=== PATIENT | female | born 1960 | race Caucasian/White ===

== ENCOUNTER 2018-02-23 20:10 | Inpatient (IN) | payer OTHER ==
[~2018-02-23] VITALS: Ht 157.5 cm; Wt 99.3 kg
--- NOTE | ~2018-02-23 | 2DMMODE ---
[facility] [place] [place] [address] 2 D/M-MODE ECHOCARDIOGRAM Name: BRITTANI HADLEY Room #: 426-P ADM IN M.R.#: [id number] Admission: 02/23/18 Attend Phys: María Fox Discharge: Date of : 62 Date of Service: 02/24/18 1449 Report #: [id number] THIS REPORT FOR: //name// APPROVED REPORT Study performed: 02/24/2018 12:10:32 EXAM: Comprehensive 2D, Doppler, and color-flow Echocardiogram Patient Location: Echo lab Room #: 426 Status: routine BSA: 1.99 HR: 67 bpm BP: 156/89 mmHg Rhythm: NSR Other Information Study Quality: Poor Indications Congestive Heart Failure Weakness/fatigue. Hx. of CABG, stents, diabetes, HTN, chest pain, SOA. 2D Dimensions RVDd: 24.81 mm IVSd: 12.21 (7-11mm) LVOT Diam: 20.22 (18-24mm) LVDd: 47.79 mm PWd: 12.81 (7-11mm) LVDs: 34.83 (25-40mm) Aortic Root: 28.59 mm IVC: 20.00 mm Volumes Left Atrial Volume (Systole) Single Plane 4CH: 31.77 mL Single Plane 2CH: 38.62 mL LA ESV Index: 22.20 mL/m2 Aortic Valve AoV Peak Armaan.: 3.19 m/s AO Peak Gr.: 43.08 mmHg LVOT Max P.76 mmHg AO Mean Gr.: 21.73 mmHg AO V2 Mean: 2.23 m/s LVOT Max V: 1.39 m/s AO V2 VTI: 77.25 cm DAVID Vmax: 1.40 cm2 [facility] [place] [address] 2 D/M-MODE ECHOCARDIOGRAM Name: BRITTANI HADLEY Room #: 426[facility] IN M.R.#: [id number] Admission: 02/23/18 Attend Phys: María Fox Discharge: Date of : 62 Date of Service: 02/24/18 1449 Report #: [id number] Mitral Valve E/A Ratio: 1.3 MV Decel. Time: 224.12 ms MV E Max Armaan.: 1.13 m/s MV A Armaan.: 0.85 m/s MV PHT: 64.99 ms IVRT: 93.43 ms Pulmonary Vein P Vein S: 0.44 m/s P Vein A: 0.26 m/s P Vein D: 0.61 m/s P Vein A Dur.: 162.6 msec P Vein S/D Ratio: 0.72 Tricuspid Valve TR Peak Armaan.: 2.45 m/s RAP Estimate: 5.00 mmHg TR Peak Gr.: 23.93 mmHg PA Pressure: 29.00 mmHg Left Ventricle The left ventricle is normal size. Mild concentric left ventricular hypertrophy. The left ventricular systolic function is normal. The left ventricular ejection fraction is within the normal range. LVEF is 55%. Moderate diastolic dysfunction is present (pseudonormal filling). Right Ventricle The right ventricle is normal size. The right ventricular systolic function is normal. Atria Left atrium is mildly dilated. The right atrium size is normal. Aortic Valve The aortic valve is not well visualized. Aortic valve is appears trileaflet. No aortic regurgitation seen. There is mild valvular aortic stenosis. Calculated aortic valve area is 1.5 cm2 with maximum pressure gradient of 41 mmHg and mean pressure gradient of 22 mmHg. Mitral Valve The mitral valve is normal in structure. Mild mitral annular calcification. Trace mitral regurgitation. No evidence of mitral valve stenosis. Tricuspid Valve [facility] [address] [place] [address] 2 D/M-MODE ECHOCARDIOGRAM Name: BRITTANI HADLEY Room #: 426-P ADM IN ..#: [id number] Admission: 02/23/18 Attend Phys: María Fox Discharge: Date of : 62 Date of Service: 02/24/18 1449 Report #: [id number] The tricuspid valve is normal in structure. Trace tricuspid regurgitation. Estimated PAP of 29 mmHg. Pulmonic Valve Pulmonic valve is not well visualized. Great Vessels Aortic root is normal in size. IVC is normal in size and collapses >50% with inspiration. Pericardium There is no pericardial effusion. <Conclusion> The left ventricle is normal size. LVEF is 55%. Left atrium is mildly dilated. The aortic valve is not well visualized. Aortic valve is appears trileaflet. There is mild valvular aortic stenosis. Calculated aortic valve area is 1.5 cm2 with maximum pressure gradient of 41 mmHg and mean pressure gradient of 22 mmHg. The mitral valve is normal in structure. Mild mitral annular calcification. Trace mitral regurgitation. The tricuspid valve is normal in structure. Trace tricuspid regurgitation. Estimated PAP of 29 mmHg. Pulmonic valve is not well visualized. There is no pericardial effusion. <ELECTRONICALLY SIGNED> By: Jose Foster MD 02/24/18 1449 1449 144 Jose Foster MD /INF
--- NOTE | ~2018-02-23 | EKG ---
[address] [address] ELECTROCARDIOGRAM REPORT Name: BRITTANI HADLEY Room #: 426-P ADM IN M.R.#: [id number] Admission: 02/23/18 Attend Phys: María Pryor Discharge: Date of : 62 Report #: [id number] THIS REPORT FOR: //name// [facility] ED Test Date: 2018-02-23 Test Time: 20:49:54 Pat Name: BRITTANI HADLEY Department: Room: 426 Gender: F [employer] Service [employer]: norberto : 1960 Requested By: Marilyn Celaya Order Number: [id number] MD: Robert Correia Measurements Intervals [place] Rate: 70 P: 30 NH: 178 QRS: 14 QRSD: 119 T: 51 QT: 425 QTc: 459 Interpretive Statements Sinus rhythm Nonspecific intraventricular conduction delay Compared to ECG 11/17/2015 07:24:25 Intraventricular conduction delay now present Electronically Signed On 02-24-2018 9:05:09 CDT by Robert Correia [email or web address] <ELECTRONICALLY SIGNED> By: [place] [id number] 48 Robert Correia MD /NORMAN
--- NOTE | ~2018-02-23 | HC ---
[facility] [place] [address] CONSULTATION Name: BRITTANI HADLEY Room #: 426-P ADM IN M.R.#: [id number] Admission: 02/23/18 Attend Phys: María Pryor Discharge: Date of : 62 Report #: [id number] THIS REPORT FOR: //name// CC: María Guzman DATE OF SERVICE: 02/24/2018 NEPHROLOGY CONSULTATION REASON FOR CONSULTATION: Renal transplant. HISTORY OF PRESENT ILLNESS: The patient is well known to our service. This is a 57-year-old patient who underwent a renal transplantation procedure for diabetic nephropathy and end-stage renal disease 10 years ago. Eight years ago, she had coronary bypass surgery complicated by MRSA infection of the sternum and prolonged hospitalization at [facility], but she eventually did well. Creatinine was at baseline between 1 and 1.5. Recently, she has had elevating creatinine 2 weeks ago in the office. She was seen by Dr. Fairbanks and her creatinine was 2.9. She had volume overload and her torsemide, which was 10 mg once a day, I believe, was increased to 20 mg twice daily. Her swelling improved. She has also had anemia and was given intravenous iron as an outpatient as well as begun on erythropoietin. Her hemoglobin has responded nicely. The patient has become very sluggish and tired and weak over the last several days with cold intolerance, came to the Emergency Room with these complaints and was admitted. 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 She has got peripheral neuropathy. She has peripheral arterial disease, has had peripheral bypass surgery on both legs. 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 OUTPATIENT MEDICATIONS: As listed include tacrolimus 0.5 mg b.i.d., Myfortic 360 mg b.i.d., allopurinol 300 mg daily, Xanax 0.25 mg p.r.n., aspirin 81 mg daily, calcium carbonate 500 mg daily, calcium carbonate with vitamin D3 at 600 units daily, carvedilol 12.5 mg b.i.d., Plavix 75 mg daily, glipizide 5 mg daily, hydrocodone, magnesium b.i.d., mycophenolate 360 mg b.i.d., Actos 30 mg daily, simvastatin 20 mg daily, Ambien 5 mg at bedtime. SOCIAL HISTORY: No cigarettes or alcohol. She is disabled. [address] [address] CONSULTATION Name: BRITTANI HADLEY Room #: 426-P [facility] IN M.R.#: [id number] Admission: 02/23/18 Attend Phys: María Pryor Discharge: Date of : 62 Report #: [id number] FAMILY HISTORY: Strongly positive for diabetes and renal disease. PHYSICAL EXAMINATION: GENERAL: This is a reasonably well-appearing, pleasant patient, in no acute distress. SKIN: Unremarkable. SKELETAL: Shows her to be somewhat overweight, well-developed, well-nourished. HEENT: Extraocular movements are full in the right eye. No vision in the left eye. The mucous membranes are slightly dry. NECK: The neck veins are flat. CHEST: Clear to auscultation. HEART: Regular. ABDOMEN: Soft and nontender without bruits, masses or organomegaly, and the transplanted kidney is not tender. EXTREMITIES: Show no peripheral edema. The pulses are somewhat diminished. LABORATORY DATA: The sodium is 138, potassium is 3.9, chloride 103, bicarbonate 31, BUN 103, creatinine 2.9. Of note, calcium was 10.1 with no albumin listed, I believe, magnesium 3.1. ASSESSMENT AND PLAN: 1. Tired and sluggish. I suspect she has mild hypercalcemia and hypermagnesemia. We will need to cut back on her supplementations of both of them as well as her vitamin D3, which may be leading to some of these symptoms. For completeness, I will check TSH and I will check echocardiogram. She is being given some IV fluids. I will modulate the rate there. Her diuretics are being withheld and that seems to be appropriate as well. I suspect she will be feeling better if we can get some of these abnormalities corrected. 2. History of coronary bypass. 3. Diabetes with triopathy. 4. Renal transplant. Creatinine is up a little bit. Hopefully, that will come down. 5. Anemia. We will continue on erythropoietin as required. 6. History of infected sternum post coronary bypass. <ELECTRONICALLY SIGNED> By: Enrique Moran MD 02/25/18 0636 1150 0049 Enrique Moran MD /nt
[~2018-02-23 20:10] MED LIST: ACCUNEB SO1.25 MG/1; ALLOPURINOL 10100 M1 PO; ALLOPURINOL 30300 M2 PO; AMBIEN 5 MG TABL5 M1 PO; BRILINTA90 MG PO; CALCIUM 600 +1 EAC1 PO; CARVEDILOL12.5 MG PO; COLACE100 MG PO; COLCRYS0.6 MG PO; COREG3.125 MG PO; CYCLOBENZAPRINE5 MG PO; DEMADEX20 MG PO; FLUOXETINE HCL20 M1 PO; GABAPENTIN100 MG PO; HYDROCODONE-AP1 EAC6 PO; HYDROCODONE-APA1 TA1 PO; LANTUS SQ; LANTUS SUBQ; LASIX 40 MG TAB40 M2 PO; LOW DOSE ASPIRI81 M1 PO; MIRALAX17 GM PO; MYFORTIC180 MG PO; NITROGLYCERIN0.4 MG SUBLING; NORCO 10-325 T1 EACH PO; NOVOLOG100 UNIT/1 SQ; NOVOLOG100 UNIT/1 SUBQ; PAIN RELIEVER325 MG PO; PLAVIX 75 MG TA75 M1 PO; PREDNISONE 10 M10 MG PO; PREDNISONE 20 M20 MG PO; PROGRAF0.5 MG PO; PROGRAF1 MG PO; PROZAC20 MG PO; SIMVASTATIN40 MG PO; VITAMIN E400 UNIT PO; XANAX 0.25 MG0.25 MG PO; ZOCOR20 MG PO; ZOCOR40 MG PO
[2018-02-23 20:14] VITALS: BP 121/40
[2018-02-23] MEDS ORDERED: ACTOS15 MG (20:29)
[2018-02-23] MEDS ORDERED: GLUCOTROL5 MG (20:30)
[2018-02-23 20:55] LABS: BE(vivo) 5.7 mmol/L (-2 to +3); HCO3 31.2 mmol/L (22.0-26.0); PCO2 VENOUS 49.4 mmHg (41.0-51.0); PO2 VENOUS 39.2 mmHg (35.0-45.0)
[2018-02-23 21:07] LABS: ABSOLUTE NEUTROPHILS 1.7 thou/uL (1.4-8.2); BASOPHILS 1.6 % (0.0-2.0); EOSINOPHILS 2.4 % (0.0-3.0); HEMATOCRIT 33.4 % (37.0-47.0); HEMOGLOBIN 10.9 gm/dL (12.0-15.0); LYMPHOCYTES 36.2 % (24.0-44.0); MCH 28.6 pg (26.0-34.0); MCHC 32.6 g/dL (28.0-37.0); MCV 87.5 fL (80.0-100.0); MONOCYTES 11.9 % (1.0-8.0); PLATELET COUNT 159 thou/uL (150-400); POLYS 47.9 % (36.0-66.0); RBC 3.82 mil/uL (4.20-5.00); WBC 3.5 thou/uL (4.0-11.0)
[2018-02-23 21:20] LABS: CALCIUM 10.5 mg/dL (8.5-10.1); CREATININE 3.3 mg/dL (0.6-1.0); POTASSIUM 4.1 mmol/L (3.5-5.1)
[2018-02-23 21:45] LABS: URINE BILIRUBIN NEGATIVE (Negative); URINE BLOOD NEGATIVE (Negative); URINE CLARITY CLEAR; URINE COLOR YELLOW; URINE GLUCOSE-RANDOM* NEGATIVE (Negative); URINE KETONES NEGATIVE (Negative); URINE LEUKOCYTES 1+ (Negative); URINE NITRITE NEGATIVE (Negative); URINE PROTEIN (DIPSTICK) NEGATIVE (Negative); URINE SPECIFIC GRAVITY 1.015 (1.005-1.035); URINE UROBILINOGEN 0.2 E.U./dl (0.2-1.0)
[2018-02-23 21:55] LABS: BACTERIA 1-9 Few /HPF (None Seen); CASTS None Seen /LPF (None Seen); CRYSTALS None Seen /LPF (None Seen); SQUAMOUS 0-3 Few /LPF (0-3); URINE WBC 0-5 Rare /HPF (0-5)
[2018-02-23 21:56] LABS: URINE RBC None Seen /HPF (0-2)
[2018-02-23] MEDS ORDERED: MAGNESIUM250 M1 PO (22:07)
[2018-02-23] MEDS ORDERED: BIOTIN1 M1 PO (22:14)
[2018-02-24] MEDS ORDERED: GRAPE SEED50 M1 PO (01:14)
[2018-02-24] MEDS ORDERED: SWEET OIL30 ML PO (01:14)
[2018-02-24] MEDS ORDERED: GREEN TEA1 EACH PO (01:15)
[2018-02-24] MEDS ORDERED: CENTRUM SILVER1 EAC2 PO (01:15)
[2018-02-24] MEDS ORDERED: TUMS PO (01:15)
[2018-02-24] MEDS ORDERED: VITAMIN D31000 UNIT PO (01:16)
[2018-02-24] MEDS ORDERED: CINNAMON500 MG PO (01:17)
[2018-02-24 05:23] VITALS: BP 137/39
[2018-02-24 06:48] VITALS: BP 138/45
[2018-02-24 07:48] VITALS: BP 156/39
[2018-02-24 08:34] LABS: CALCIUM 10.1 mg/dL (8.5-10.1); CREATININE 2.9 mg/dL (0.6-1.0); MAGNESIUM 3.1 mg/dL (1.8-2.4); PHOSPHORUS 4.1 mg/dL (2.5-4.9); POTASSIUM 3.9 mmol/L (3.5-5.1)
[2018-02-24 11:21] VITALS: BP 156/89
[2018-02-24 20:00] VITALS: BP 125/40
[2018-02-25 04:30] VITALS: BP 118/49
[2018-02-25 07:48] VITALS: BP 124/57
[2018-02-25 08:12] LABS: ALBUMIN 2.9 g/dL (3.4-5.0); CALCIUM 8.7 mg/dL (8.5-10.1); CREATININE 2.1 mg/dL (0.6-1.0); MAGNESIUM 2.5 mg/dL (1.8-2.4); PHOSPHORUS 2.8 mg/dL (2.5-4.9); POTASSIUM 3.4 mmol/L (3.5-5.1)
[2018-02-25] MEDS ORDERED: CALCIUM 600 +1 EAC1 PO (09:11)
[2018-02-25] MEDS ORDERED: DEMADEX20 MG PO (09:11)
[2018-02-25] MEDS ORDERED: VITAMIN D31000 UNIT PO (09:11)
[2018-02-25 12:16] VITALS: BP 124/57
== END 2018-02-25 13:40 | disposition home or self-care (01) | DRG 682 ==
LOC: ER 20:10 → EROBS 22:23 → 4E 22:23
PROVIDERS: Hospitalist; Nurse Practitioner Acute Care; Physician Assistant
DX: N17.9 Acute kidney failure, unspecified (principal); E43 Unspecified severe protein-calorie malnutrition; Z94.0 Kidney transplant status; M10.9 Gout, unspecified; E11.51 Type 2 diabetes mellitus with diabetic peripheral angiopathy without gangrene; H54.62 Unqualified visual loss, left eye, normal vision right eye; E78.5 Hyperlipidemia, unspecified; F32.9 Major depressive disorder, single episode, unspecified; I25.10 Atherosclerotic heart disease of native coronary artery without angina pectoris; E11.40 Type 2 diabetes mellitus with diabetic neuropathy, unspecified; E86.0 Dehydration; E11.22 Type 2 diabetes mellitus with diabetic chronic kidney disease; E11.319 Type 2 diabetes mellitus with unspecified diabetic retinopathy without macular edema; D64.9 Anemia, unspecified; E83.41 Hypermagnesemia; E86.9 Volume depletion, unspecified; E83.52 Hypercalcemia; Z79.4 Long term (current) use of insulin; Z95.1 Presence of aortocoronary bypass graft; Z90.710 Acquired absence of both cervix and uterus; Z83.3 Family history of diabetes mellitus; Z84.1 Family history of disorders of kidney and ureter; Z82.49 Family history of ischemic heart disease and other diseases of the circulatory system; Z95.5 Presence of coronary angioplasty implant and graft; Z95.820 Peripheral vascular angioplasty status with implants and grafts; Z79.82 Long term (current) use of aspirin; Z79.899 Other long term (current) drug therapy; Z23 Encounter for immunization; E10.22 Type 1 diabetes mellitus with diabetic chronic kidney disease; N18.3 Chronic kidney disease, stage 3 (moderate)
CPT/HCPCS: 10783